=== PATIENT | female | born 1985 | race Caucasian/White ===

== ENCOUNTER 2018-02-03 10:19 | Emergency (ER) | payer OTHER ==
[~2018-02-03] VITALS: Ht 175.3 cm; Wt 59.0 kg
[2018-02-03] MEDS ORDERED: ONDANSETRON HCL/PF 4 MG/2 ML VIAL ONE (11:14)
[2018-02-03] MEDS ORDERED: MORPHINE SULFATE INJ 4 MG/ML DISP.SYRIN ONE (11:15)
--- NOTE | 2018-02-03 11:21 | NUR ---
recieved Pt at this time to ed bed 04. aaox4, pt is complaining of rt sided chest pain since last night. pt sts she had h/o PE 2 yrs ago. tachycardic in the monitor- 110. gowned and placed on monitor. skin is warm and non diaphoretic. all needs are anticiapted. will contto monitor
[2018-02-03 11:28] LABS: BASOPHILS % (AUTO) 0.9 % (0.0-2.0); EOSINOPHILS % (AUTO) 3.4 % (0.0-6.0); HEMATOCRIT 44 % (33-45); HEMOGLOBIN 14.7 g/dL (11.5-14.8); LYMPHOCYTES # (AUTO) 1.8 /CMM (0.8-4.8); MEAN CORPUSCULAR HEMOGLOBIN 29 PG (26.0-33.0); MEAN CORPUSCULAR HGB CONC 33 g/dl (31.0-36.0); MEAN CORPUSCULAR VOLUME 88 fL (82-100); MONOCYTES # (AUTO) 0.3 /CMM (0.1-1.30); MONOCYTES % (AUTO) 6.4 % (2.0-12.0); NEUTROPHILS % (AUTO) 55.3 % (43.0-81.0); PLATELET COUNT (AUTO) 197 /CMM (150-450); RDW COEFFICIENT OF VARIATION 11.8 (11.5-15.0); RED BLOOD CELL COUNT(AUTO) 5.06 MIL/uL (4.0-5.2); WHITE BLOOD COUNT (AUTO) 5.3 K/uL (4.3-11.0)
[2018-02-03] MEDS ORDERED: MORPHINE SULFATE INJ 2 MG/ML DISP.SYRIN IV ONE (11:30)
[2018-02-03] MEDS ORDERED: ONDANSETRON HCL/PF 4 MG/2 ML VIAL IVP ONE (11:30)
--- NOTE | 2018-02-03 11:30 | NUR ---
PT REFUSED MORPHINE AND ZOFRAN AT THIS TIME. STS SHE CAN TOLERATE PAIN AT THIS TIME AND DOES NOT WANT ANYTHING, ER NOTIFIED
[2018-02-03 11:35] LABS: CALCIUM, SERUM 8.5 mg/dL (8.5-10.1); CARBON DIOXIDE 24 mmol/L (21-32); CHLORIDE 105 mmol/L (98-107); CREATININE 0.8 mg/dL (0.6-1.3); GLUCOSE 99 mg/dL (74-106); POTASSIUM 3.3 mmol/L (3.5-5.1); SODIUM SERUM 138 mmol/L (136-145); UREA NITROGEN, BLOOD 8 mg/dL (7-18)
[2018-02-03 11:39] LABS: INR 0.92 (0.85-1.15)
[2018-02-03 11:44] LABS: TROPONIN I < 0.017 ng/mL (0.00-0.056)
[2018-02-03] MEDS ORDERED: IOHEXOL-350 100 ML VIAL IV ONE (12:28)
[2018-02-03] MEDS ORDERED: CT SWABBABLE VALVE TRANS SET 1 EA INFUS.SET MC ONE (12:28)
--- NOTE | 2018-02-03 12:41 | NUR ---
Pt back from ct scan
[2018-02-03] MEDS ORDERED: HYDROCODONE/APAP 5/325MG 1 EACH TABLET ONE (13:58)
[2018-02-03] MEDS ORDERED: HYDROCODONE/APAP 5/325MG 1 EACH TABLET PO ONE (14:00)
--- NOTE | 2018-02-03 14:24 | NUR ---
IV removed. Catheter intact and site benign. Pressure and 4x4 applied to site. No bleeding noted.Patient discharged to home in stable condition. Written and verbal after care instructions given. Patient verbalizes understanding of instruction.
[2018-02-03 14:30] VITALS: BP 138/95
== END 2018-02-03 14:30 | disposition home or self-care (01) ==
LOC: ER 10:27
DX: R07.89 Other chest pain (principal); F17.200 Nicotine dependence, unspecified, uncomplicated; I10 Essential (primary) hypertension
CPT/HCPCS: 36415; 71045; 71275; 80048; 84484; 84703; 85025; 85730; 93005; 99285; A4606; J2405; Q9967; Z7610; J2270